=== PATIENT | male | born 1995 | race Caucasian/White ===

== ENCOUNTER 2021-04-30 05:09 | Inpatient (IN) | payer MEDICAID, OTHER ==
[~2021-04-30] VITALS: Ht 172.7 cm; Wt 54.2 kg
--- NOTE | 2021-04-30 05:14 | NUR ---
PT TO LOBBY, WAIT TIME EXPLAINED.
--- NOTE | 2021-04-30 05:58 | NUR ---
PT STATES HE USED TO HAVE A PROBLEM WITH ALCOHOL AND THEN HE DRANK ON THE THEN 2 DAYS AGO HE STARTED TO FEEL REALLY SICK AND HAS ABDOMINAL PAIN, PT HAS BEEN EXPERIENCING N/V, PT STATES IT HURTS TO URINATE, AT BEDSIDE TO DISCUSS POC
--- NOTE | 2021-04-30 06:00 | NUR ---
PT BREATHING HEAVILY AND FAST, PT VERY SPEAKING FAST, PT VERY ANXIOUS
[2021-04-30] MEDS ORDERED: ONDANSETRON 2MG/ML, 2ML ONE (06:19)
[2021-04-30] MEDS ORDERED: FAMOTIDINE 20 MG/2 ML ONE (06:19)
[2021-04-30] MEDS ORDERED: ONDANSETRON 2MG/ML, 2ML IVPush ONE (06:30)
[2021-04-30] MEDS ORDERED: SODIUM CHLORIDE FLUSH 10ML SYR IVF ONE (06:30)
[2021-04-30] MEDS ORDERED: SODIUM CHLORIDE 0.9% 1,000ML IVBOLUS ONE ×2 (06:30→07:30)
[2021-04-30] MEDS ORDERED: FAMOTIDINE 20 MG/2 ML IVPush ONE (06:30)
[2021-04-30 06:37] LABS: BASOPHILS % (AUTO) 0 % (0-1); EOSINOPHILS % (AUTO) 0 % (1-7); LYMPHOCYTES % (AUTO) 5 % (22-44); MEAN CORPUSCULAR HEMOGLOBIN 31.5 pg (27.5-34.5); MEAN PLATELET VOLUME 7.1 fL (7.4-10.4); MONOCYTES % (AUTO) 6 % (2-9); NEUTROPHILS % (AUTO) 89 % (42-75); PLATELET COUNT 316 x10^3/uL (130-400); RED BLOOD COUNT 6.11 x10^6/uL (4.38-5.82); RED CELL DISTRIBUTION WIDTH 13.5 % (9.4-14.8)
[2021-04-30 06:46] LABS: ALANINE AMINOTRANSFERASE 46 U/L (12-78); ALBUMIN 4.4 g/dL (3.4-5.0); ANION GAP 13 mmol/L (5-15); CALCIUM 9.2 mg/dL (8.5-10.1); CHLORIDE 85 mmol/L (98-107); CREATININE 1.76 mg/dL (0.7-1.3)
--- NOTE | 2021-04-30 06:48 | NUR ---
REPORT FROM DEEDEE MATHEWS
[2021-04-30 06:49] LABS: ALKALINE PHOSPHATASE 102 U/L (45-117); BILIRUBIN,TOTAL 1.6 mg/dL (0.2-1.0); TOTAL PROTEIN 8.6 g/dL (6.4-8.2)
--- NOTE | 2021-04-30 06:50 | NUR ---
PT TO IMAGING
--- NOTE | 2021-04-30 07:07 | NUR ---
PT BACK FROM IMAGING, CONNECTED TO MONITORS. CALL LIGHT WITHIN REACH
[2021-04-30] MEDS ORDERED: POTASSIUM CHLORIDE 40 MEQ in SODIUM CHLORIDE 0.9% 500 ML IV ONE (07:30)
--- NOTE | 2021-04-30 07:40 | NUR ---
erp at bs to update pt on admit
[2021-04-30 07:52] LABS: MICROSCOPIC NOT IND
[2021-04-30] MEDS ORDERED: ONDANSETRON 2MG/ML, 2ML IVPush PRN (08:00)
[2021-04-30] MEDS ORDERED: PHARMACY MAY ADJ FOR RENAL FX MC SCH (08:00)
[2021-04-30] MEDS: HEPARIN 5,000 UNITS/ML, 1ML SQ SCH ×2 (08:00→15:42)
[2021-04-30] MEDS ORDERED: ENALAPRILAT 1.25 MG/ML, 2ML IVPush PRN (08:00)
--- NOTE | 2021-04-30 08:30 | NUR ---
Pt to be admitted to MEDICAL, room 341. Report called to ANDRES.
[2021-04-30] MEDS ORDERED: PROMETHAZINE 25 MG/ML, 1ML IM PRN (10:30)
[2021-04-30] MEDS ORDERED: LORazepam 1MG TABLET PO ONE (12:00)
[2021-04-30] MEDS ORDERED: LORazepam 2 MG/ML, 1ML IVPush PRN (12:30)
[2021-04-30 14:36] VITALS: BP 119/77
[2021-04-30 14:43] VITALS: BP 148/82
[2021-04-30] MEDS: POTASSIUM CHLORIDE 20 MEQ in LACTATED RINGERS 1,000 ML IV SCH ×2 (16:27→22:52)
[2021-04-30 20:13] VITALS: BP 102/66
[2021-05-01 01:15] VITALS: BP 127/89
[2021-05-01] MEDS: POTASSIUM CHLORIDE 20 MEQ in LACTATED RINGERS 1,000 ML IV SCH (05:20)
[2021-05-01 05:52] LABS: ALANINE AMINOTRANSFERASE 35 U/L (12-78); ALBUMIN 2.9 g/dL (3.4-5.0); ANION GAP 5 mmol/L (5-15); CALCIUM 8.2 mg/dL (8.5-10.1); CHLORIDE 105 mmol/L (98-107); CREATININE 1.02 mg/dL (0.7-1.3)
[2021-05-01 05:54] LABS: ALKALINE PHOSPHATASE 70 U/L (45-117); BILIRUBIN,TOTAL 1.6 mg/dL (0.2-1.0); TOTAL PROTEIN 6.2 g/dL (6.4-8.2)
[2021-05-01 06:34] LABS: BASOPHILS % (AUTO) 1 % (0-1); EOSINOPHILS % (AUTO) 1 % (1-7); LYMPHOCYTES % (AUTO) 28 % (22-44); MEAN CORPUSCULAR HEMOGLOBIN 31.5 pg (27.5-34.5); MEAN CORPUSCULAR HGB CONC 33.7 g/dL (33.2-36.2); MEAN PLATELET VOLUME 6.7 fL (7.4-10.4); MONOCYTES % (AUTO) 13 % (2-9); NEUTROPHILS % (AUTO) 58 % (42-75); PLATELET COUNT 227 x10^3/uL (130-400); RED BLOOD COUNT 5.13 x10^6/uL (4.38-5.82); RED CELL DISTRIBUTION WIDTH 13.5 % (9.4-14.8)
[2021-05-01] MEDS: HEPARIN 5,000 UNITS/ML, 1ML SQ SCH ×2 (08:00)
[2021-05-01] MEDS ORDERED: POTASSIUM PHOSPHATE 44 MEQ in SODIUM CHLORIDE 0.9% 500 ML IV ONE (09:30)
[2021-05-01 09:43] VITALS: BP 108/73
[2021-05-01 12:36] VITALS: BP 105/66
== END 2021-05-01 16:09 | disposition home or self-care (01) | DRG 641 ==
LOC: ED 06:35 → 3N 07:46 → ED 12:40
PROVIDERS: ADMIT Hospitalist; ATTEND Hospitalist
DX: E86.0 Dehydration (principal); E87.1 Hypo-osmolality and hyponatremia; E87.2 Acidosis; E87.6 Hypokalemia; F12.90 Cannabis use, unspecified, uncomplicated; Z87.11 Personal history of peptic ulcer disease
CPT/HCPCS: 36415; 74022; 80053; 81003; 83605; 83690; 83735; 84100; 85025; 93005; 96374; 96375; G0378; J2405; J2550; J3480; J2060; J7030; J7040; J7120

== ENCOUNTER 2021-05-17 20:30 | Emergency (ER) | payer MEDICAID ==
[~2021-05-17] VITALS: Ht 170.2 cm; Wt 60.0 kg
[2021-05-17] MEDS ORDERED: FAMOTIDINE 20 MG/2 ML IVPush ONE (21:00)
[2021-05-17] MEDS ORDERED: ONDANSETRON 2MG/ML, 2ML IVPush ONE (21:00)
[2021-05-17] MEDS ORDERED: SODIUM CHLORIDE 0.9% 1,000ML IVBOLUS ONE (21:00)
[2021-05-17 21:26] LABS: ANION GAP 17 mmol/L (5-15); CALCIUM 9.4 mg/dL (8.5-10.1); CHLORIDE 90 mmol/L (98-107); CREATININE 2.14 mg/dL (0.7-1.3)
[2021-05-17 21:27] LABS: ALANINE AMINOTRANSFERASE 49 U/L (12-78); ALBUMIN 5.2 g/dL (3.4-5.0)
[2021-05-17 21:29] LABS: ALKALINE PHOSPHATASE 135 U/L (45-117); BASOPHILS % (AUTO) 0 % (0-1); EOSINOPHILS % (AUTO) 0 % (1-7); LYMPHOCYTES % (AUTO) 9 % (22-44); MEAN CORPUSCULAR HEMOGLOBIN 31.7 pg (27.5-34.5); MEAN CORPUSCULAR HGB CONC 34.5 g/dL (33.2-36.2); MEAN PLATELET VOLUME 7.5 fL (7.4-10.4); MONOCYTES % (AUTO) 5 % (2-9); NEUTROPHILS % (AUTO) 86 % (42-75); PLATELET COUNT 300 x10^3/uL (130-400); RED CELL DISTRIBUTION WIDTH 13.8 % (9.4-14.8); TOTAL PROTEIN 9.4 g/dL (6.4-8.2)
--- NOTE | 2021-05-17 23:01 | NUR ---
INITIAL PT CONTACT. PT PRESENTS TO ED C/O "I HAVE CARPAL TUNNEL, I'M HAVING [place] AND A LOT OF VOMITING. I KIND OF RELAPSED ON ETOH LAST NIGHT AND I HAD A PROBLEM DRINKING IN THE PAST." PT EXTREMELY ANXIOUS AND RESTLESS IN ROOM, UNABLE TO SIT STILL AND UNCOOPERATIVE WITH STAFF. PLACED ON CONTINUOUS MONITORING. BELONGINGS WITHIN REACH. AWAITING ERP.
[2021-05-17] MEDS ORDERED: FAMOTIDINE 20 MG/2 ML ONE (23:02)
[2021-05-17] MEDS ORDERED: ONDANSETRON 2MG/ML, 2ML ONE (23:02)
[2021-05-17] MEDS ORDERED: LORazepam 2 MG/ML, 1ML ONE (23:44)
[2021-05-18] MEDS ORDERED: LORazepam 2 MG/ML, 1ML IVPush PRN
[2021-05-18 00:05] LABS: PH, VENOUS 7.596 pH (7.320-7.420)
[2021-05-18] MEDS ORDERED: SODIUM CHLORIDE 0.9% 1,000ML IVBOLUS ONE (00:30)
--- NOTE | 2021-05-18 00:30 | NUR ---
Dayron serrano in EDM - 05/18/21 at 0351 by LENA PURE WICK PLACED PER PT REQUEST TO URINATE. UNABLE TO AMBULATE TO BATHROOM SAFELY AT THIS TIME.
[2021-05-18 00:32] LABS: ACETONE, SERUM Small (20mg/dL) (Negative)
--- NOTE | 2021-05-18 01:02 | NUR ---
PT RESTING CALMLY ON GURNEY WITH EYES CLOSED. PT REPORTS IMPROVED SYMPTOMS AT THIS TIME. CALL LIGHT AND PERSONAL BELONGINGS WITHIN REACH
--- NOTE | 2021-05-18 01:16 | NUR ---
BEDSIDE REPORT GIVEN TO DENITA MARK
--- NOTE | 2021-05-18 02:18 | NUR ---
PT RESTING SOUNDLY ON GURNEY RESP EVEN AND UNLABORED
--- NOTE | 2021-05-18 03:46 | NUR ---
LAB CALLED TO FOLLOW UP ON REPEAT BMP DRAW. [facility] WILL SEND SOMEONE
--- NOTE | 2021-05-18 04:40 | NUR ---
PT RESTING ON GURNEY RESP EVEN AND UNLABORED NADN, VSS NO NEEDS AT THIS TIME.
[2021-05-18 05:30] LABS: ANION GAP 9 mmol/L (5-15); CALCIUM 7.9 mg/dL (8.5-10.1); CHLORIDE 101 mmol/L (98-107); CREATININE 1.28 mg/dL (0.7-1.3)
--- NOTE | 2021-05-18 05:36 | NUR ---
PT RESTING ON GURNEY RESP EVEN AND UNLABORED NADN, VSS NO NEEDS AT THIS TIME.
--- NOTE | 2021-05-18 05:55 | NUR ---
Patient given discharge instructions and they have confirmed that they understand the instructions. Patient ambulatory with steady gait. NAD, all questions answered appropriately, denies additional needs at this time. No personal belongings left in room after discharge.
[2021-05-18 05:56] VITALS: BP 106/72
== END 2021-05-18 05:58 | disposition home or self-care (01) ==
LOC: ED 22:10
DX: R11.2 Nausea with vomiting, unspecified (principal); N28.9 Disorder of kidney and ureter, unspecified; F10.10 Alcohol abuse, uncomplicated; R06.02 Shortness of breath; Y90.0 Blood alcohol level of less than 20 mg/100 ml
CPT/HCPCS: 36415; 80048; 80053; 82010; 82803; 85025; 96361; 96374; 96375; 99285; J2060; J2405; J7030